=== PATIENT | female | born 1955 | race American Indian/Alaskan Native ===

== ENCOUNTER 2017-02-14 19:43 | Inpatient (IN) | payer MEDICARE ==
[2017-02-14 22:05] LABS: Alanine Aminotransferase 8 units/L (7-56); Albumin 4.3 g/dL (3.9-5); Albumin/Globulin Ratio 1.5 %; Alkaline Phosphatase 89 units/L (35-129); Anion Gap 18 mmol/L; BUN/Creatinine Ratio 16.25; Blood Urea Nitrogen 13 mg/dL (7-17); Carbon Dioxide 26 mmol/L (22-30); Chloride 105.3 mmol/L (98-107); Glucose 95 mg/dL (65-100); Potassium 4.2 mmol/L (3.6-5.0); Sodium 145 mmol/L (137-145); Total Protein 7.2 g/dL (6.3-8.2)
[2017-02-14 22:07] LABS: Basophils % (Auto) 0.5 % (0.0-1.8); Eosinophils % (Auto) 0.1 % (0.0-4.3); Hematocrit 41.5 % (30.3-42.9); Hemoglobin 13.7 gm/dl (10.1-14.3); Mean Corpuscular HGB Conc 33 % (30-34); Mean Corpuscular Hemoglobin 31 pg (28-32); Mean Corpuscular Volume 93 fl (79-97); Platelet Count 207 K/mm3 (140-440); Red Blood Count 4.47 M/mm3 (3.65-5.03); Red Cell Distribution Width 14.2 % (13.2-15.2); White Blood Count 10.5 K/mm3 (4.5-11.0)
[2017-02-14 23:26] LABS: Urine Drugs of Abuse Note Disclamer
--- NOTE | 2017-02-14 23:32 | Emergency Department Report ---
ED Syncope HPI - General Chief Complaint: Syncope Stated Complaint: DEHYDRATION Time Seen by Provider: 02/14/17 22:29 Source: patient - History of Present Illness Initial Comments: 61-year-old female with past medical history of hypertension presenting to the emergency department complaining of syncopal episode. Per patient and daughter who is at bedside and witnessed the event she was seated on her porch felt hot and then proceeded to have brief LOC. Pt then woke up and had another brief episode of LOC. Patient did not hit her head. Prior to syncope, patient did not have symptoms of: headache, change of vision, chest pain, abdominal pain, shortness of breath, difficulty breathing. Currently patient has no symptoms. Timing/Prior Episodes: multiple episodes today Precipitating Factors: Positive: none. Negative: blurred vision, confusion, diaphoresis, injury, lightheadedness Context: sitting Loss of Consciousness: brief (seconds) Current Symptoms: back to normal. denies: blurred vision, chest pain, dizziness , lightheadedness, loss of bladder control, loss of bowel control, shallow/ rapid breathing, weak/absent pulse - Related Data Allergies/Adverse Reactions: Allergies No Known Allergies Allergy (Verified 02/15/17 00:03) Home Medications: Ambulatory Orders Escitalopram [Lexapro] 10 mg PO DAILY #60 tablet 04/18/16 amLODIPine [Norvasc] 10 mg PO DAILY #60 tab 04/18/16 Ergocalciferol [Vitamin D2] 1 cap PO QWEEK 02/14/17 Lisinopril [Zestril TAB] 10 mg PO QDAY 02/14/17 ED Review of Systems ROS: Stated complaint: DEHYDRATION Other details as noted in HPI Comment: All other systems reviewed and negative Constitutional: denies: chills, fever Eyes: denies: eye pain, eye discharge, vision change ENT: denies: ear pain, throat pain Respiratory: denies: cough, shortness of breath, wheezing Cardiovascular: syncope. denies: chest pain, palpitations Endocrine: no symptoms reported Gastrointestinal: denies: abdominal pain, nausea, diarrhea Genitourinary: denies: urgency, dysuria, discharge Musculoskeletal: denies: back pain, joint swelling, arthralgia Skin: denies: rash, lesions Neurological: denies: headache, weakness, paresthesias Psychiatric: denies: anxiety, depression Hematological/Lymphatic: denies: easy bleeding, easy bruising ED Past Medical Hx - Past Medical History Previous Medical History?: Yes Hx Hypertension: Yes Hx Psychiatric Treatment: Yes (anxiety,depression) Additional medical history: pt had hydrocephalus 2012 , 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, polio - Surgical History Past Surgical History?: Yes Additional Surgical History: surgery to brain to remove excess fluid, , umbilical hernia repair,hysterectomy - Social History Smoking Status: Never Smoker Substance Use Type: None - Medications Home Medications: Home Medications Medication Instructions Recorded Confirmed Last Taken Type Escitalopram [Lexapro] 10 mg PO DAILY #60 tablet 04/18/16 02/14/17 Unknown Rx amLODIPine [Norvasc] 10 mg PO DAILY #60 tab 04/18/16 02/14/17 Unknown Rx Ergocalciferol [Vitamin D2] 1 cap PO QWEEK 02/14/17 02/14/17 Unknown History Lisinopril [Zestril TAB] 10 mg PO QDAY 02/14/17 02/14/17 Unknown History ED Physical Exam - General Limitations: Altered Mental Status General appearance: alert, in no apparent distress - Head Head exam: Present: atraumatic, normocephalic - Eye Eye exam: Present: normal appearance - ENT ENT exam: Present: mucous membranes moist - Neck Neck exam: Present: normal inspection - Respiratory Respiratory exam: Present: normal lung sounds bilaterally. Absent: respiratory distress - Cardiovascular Cardiovascular Exam: Present: regular rate, normal rhythm. Absent: systolic murmur, diastolic murmur, rubs, gallop - GI/Abdominal GI/Abdominal exam: Present: soft, normal bowel sounds - Extremities Exam Extremities exam: Present: normal inspection - Back Exam Back exam: Present: normal inspection - Neurological Exam Neurological exam: Present: alert, oriented X3 - Psychiatric Psychiatric exam: Present: normal affect, normal mood - Skin Skin exam: Present: warm, dry, intact, normal color. Absent: rash ED Course Vital Signs 02/14/17 02/14/17 02/14/17 20:15 21:26 21:30 Temperature 99.3 F Pulse Rate 73 74 80 Respiratory 13 16 12 Rate Blood Pressure 157/97 152/110 Blood Pressure 157/97 [Left] O2 Sat by Pulse 97 98 96 Oximetry 02/14/17 02/14/17 02/14/17 21:38 22:01 22:30 Temperature Pulse Rate 76 77 Respiratory 15 14 25 H Rate Blood Pressure 164/102 153/108 Blood Pressure [Left] O2 Sat by Pulse 97 99 97 Oximetry 02/14/17 23:01 Temperature Pulse Rate 75 Respiratory 14 Rate Blood Pressure 160/103 Blood Pressure [Left] O2 Sat by Pulse 97 Oximetry ED Medical Decision Making - Lab Data Result diagrams: 02/14/17 21:21 02/14/17 21:21 - EKG Data -: EKG Interpreted by Me EKG shows normal: sinus rhythm, axis (normal ), intervals (normal ), ST-T waves (Twave flattening in VF-V6 ) - Medical Decision Making History of female presenting to emergency department complaining of syncope episode. Lab work negative for acute finding. No acute findings EKG. I will admit patient to telemetry for further workup. Patient has been accepted Dr. Walker's service. Dr. Walker requesting d-dimer and she will follow-up. Critical Care Time: No Critical care attestation.: If time is entered above; I have spent that time in minutes in the direct care of this critically ill patient, excluding procedure time. ED Disposition Clinical Impression: Syncope Disposition: OP ADMIT IP TO THIS HOSP Is pt being admited?: Yes Does the pt Need Aspirin: No Condition: Stable
[2017-02-14 23:55] LABS: Bacteria,Urine 1+ /HPF (Negative); Bilirubin,Urine NEG (Negative); Blood,Urine NEG (Negative); Ketones,Urine 20 mg/dL (Negative); Leukocyte Esterase,Urine NEG (Negative); Mucus,Urine FEW /HPF; Nitrite,Urine POS (Negative); Urobilinogen,Urine < 2.0 mg/dL (<2.0)
[2017-02-14] MEDS ORDERED: ZOFRAN IV PRN (23:56)
[2017-02-14] MEDS ORDERED: DULCOLAX PR PRN (23:56)
[2017-02-14] MEDS ORDERED: MILK OF MAGNESIA PO PRN (23:56)
[2017-02-14] MEDS ORDERED: TYLENOL PO PRN (23:56)
--- NOTE | 2017-02-14 23:56 | History and Physical Report ---
History of Present Illness Date of examination: 02/14/17 History of present illness: 7-year-old woman history of hypertension, anxiety, depression was brought to the emergency room because she was sitting outside for about 10 minutes when she became less responsive. She was immediately brought inside and had a near syncopal episode 2. Was brought to the emergency room for evaluation. Complains of nausea, dizziness Patient denies chest pain, palpitation, shortness of breath, cough, abdominal pain, hematochezia, dysuria, frequency, focal weakness, dysarthria, fever chills , polydipsia polyuria, hot or cold intolerance, easy bruisability, or rash or bleeding from mucosal membrane, rhinorrhea, epistaxis, earache, tinnitus, blurry vision, eye discharge, anxiety, depression. Other review of systems negative PAST SURGICAL HISTORY: , umbilical hernia, hysterectomy, brain surgery SOCIAL HISTORY: Denies alcohol, tobacco, drugs FAMILY HISTORY: Hypertension Medications and Allergies Allergies Allergy/AdvReac Type Severity Reaction Status Date / Time No Known Allergies Allergy Verified 02/15/17 00:03 Home Medications Medication Instructions Recorded Confirmed Last Taken Type Escitalopram [Lexapro] 10 mg PO DAILY #60 tablet 04/18/16 02/14/17 Unknown Rx amLODIPine [Norvasc] 10 mg PO DAILY #60 tab 04/18/16 02/14/17 Unknown Rx Ergocalciferol [Vitamin D2] 1 cap PO QWEEK 02/14/17 02/14/17 Unknown History Lisinopril [Zestril TAB] 10 mg PO QDAY 02/14/17 02/14/17 Unknown History Exam - Physical Exam Narrative exam: Gen. appearance: Patient lying in bed, no apparent distress HEENT: Normocephalic, atraumatic, pupils equally round and reactive to light, extraocular movement intact, and no sclericterus,. No JVD or thyromegaly or nodule,neck supple, no carotid bruit ,mucous membranes moist, no exudate or erythema Heart: S1, S2, regular rate and rhythm Lungs: Clear to auscultation bilaterally, breathing comfortable Abdomen: Positive bowel sounds, nontender, nondistended, no organomegaly Extremity: No edema, cyanosis, clubbing Skin: No rash, nodules, warm, dry Neuro: Oriented 3, cranial nerves II-12 intact, speech is fluent, motor and sensory intact - Constitutional Vitals: Temp Pulse Resp BP Pulse Ox 99.3 F 75 14 160/103 97 02/14/17 20:15 02/14/17 23:01 02/14/17 23:01 02/14/17 23:01 02/14/17 23:01 Results - Labs CBC & Chem 7: 02/15/17 07:22 02/15/17 07:22 Labs: Abnormal lab results 02/14/17 02/14/17 02/14/17 Range/Units 21:21 21:21 21:27 Lymph % (Auto) 8.5 L (13.4-35.0) % Lymph # 0.9 L (1.2-5.4) K/mm3 Seg Neutrophils % 85.0 H (40.0-70.0) % Seg Neutrophils # 8.9 H (1.8-7.7) K/mm3 D-Dimer (0-234) ng/mlDDU POC Glucose 68 L (70-105) Salicylates < 0.3 L (2.8-20.0) mg/dL 02/14/17 Range/Units 23:05 Lymph % (Auto) (13.4-35.0) % Lymph # (1.2-5.4) K/mm3 Seg Neutrophils % (40.0-70.0) % Seg Neutrophils # (1.8-7.7) K/mm3 D-Dimer 302.52 H (0-234) ng/mlDDU POC Glucose (70-105) Salicylates (2.8-20.0) mg/dL - Imaging and Cardiology EKG: image reviewed Chest x-ray: image reviewed Assessment and Plan Hypertensive urgency Near-syncope Anxiety Depression Admit to medicine Check cardiac enzymes, CT chest, echo, carotid Doppler Start IV hydralazine, continue appropriate outpatient medications, start DVT prophylaxis
[2017-02-15 00:40] LABS: Creatine Kinase MB 1.3 ng/mL (0.0-4.0)
[2017-02-15 00:41] LABS: Creatine Kinase 82 units/L (30-135)
[2017-02-15] MEDS ORDERED: NACL ONE (01:17)
[2017-02-15] MEDS ORDERED: ZESTRIL PO SCH ×2 (02:00→10:00)
--- NOTE | 2017-02-15 02:02 | Admit Criteria Form ---
Admission Criteria Documentation: TELEMETRY CARE Telemetry Admission Guidelines (Place 'X' for any and all applicable criteria): Admission to telemetry [A] may be indicated for ANY ONE of the following(1)(2)(3 )(4)(5): [ ]I. Cardiac disease, including ANY ONE of the following (9)(10)(11)(12)(13 ): [ ]a) Postacute PA [ ]b) Low-risk patients with ST-segment elevation PA who have undergone successful percutaneous coronary intervention [ ]c) Unstable angina [ ]d) Suspected PA (until it is ruled out) [ ]e) Post cardiac surgery (first 48 to 72 hours unless complications occur) [ ]f) Acute arrhythmias (including significant tachycardia or bradycardia) [B] [ ]g) Firing of an implantable cardioverter defibrillator [C] [ ]h) Suspected pacemaker or implantable cardioverter defibrillator malfunction (10) [ ]i) New administration or adjustment of an antiarrhythmic drug [D ] [ ]j) Child admitted for acute congestive heart failure [ ]j) Long QT syndrome [ ]k) Advanced heart block (eg, second-degree Mobitz type II, third- degree heart block) [ ]l) Acute myocarditis or pericarditis [ ]m) Short-term (ambulatory or inpatient) monitoring after a cardiac procedure as indicated by ANY ONE of the following [E]: [ ]i) Electrophysiologic studies [ ]ii) Percutaneous coronary intervention with stent placement [ ]iii) Pacemaker placement with cardiac conduction defect [ ]iv) Implantable cardiac defibrillator placement [ ]II. Drug overdose or poisoning with substance that causes arrhythmias or QT prolongation (eg, phenothiazines, sympathomimetic agents, cyclic antidepressants, digitalis, antiarrhythmic drugs)(15) [ ]III. Short-term (ambulatory or inpatient) monitoring after therapeutic or diagnostic procedure requiring conscious sedation or anesthesia (eg, endoscopy, elective cardioversion) [ ]IV. Acute cerebrovascular even[F](18) [ ]V. Massive blood transfusion (eg, at least 10 units of packed red blood cells in 24 hours) [ ]. Variceal bleeding after endoscopy, sclerotherapy, or IV vasopressin [ ]VII. Uncorrected electrolyte abnormalities associated with an increased risk of dangerous arrhythmia [G]; examples include [ ]a) Hyperkalemia with attributable ECG changes [ ]b) Potassium greater than 6.5 mmol/L (mEq/L) in a patient without history of chronic renal disease [ ]c) Prolonged QT attributed to hypokalemia, hypomagnesemia, or hypocalcemia [ X]VIII.Unexplained syncope or other neurologic event suspected of being due to arrhythmia due to a finding that increases risk; examples include(19)(20)(21): [ ]a) High-risk ECG findings (eg, bifascicular block, bradycardia, abnormal QT interval, ventricular pre- excitation) [ ]b) History of previous syncope due to arrhythmia [ ]c) Abnormal ventricular function (eg, reduced ejection fraction ) [ ]d) Exertional or supine syncope [ X]e) Concerning syncope characteristics (eg, sudden loss of consciousness without prodrome) [ ]f) Family history of sudden [ ]g) Use of arrhythmogenic medication [ ]h) Suspected cardiac ischemia [ ]i) Known channelopathy (eg, long QT syndrome, Brugada syndrome, or catecholaminergic paroxysmal ventricular tachycardia) [ ]j) Known structural heart disease (eg, hypertrophic cardiomyopathy , severe valvular disease) [ ]k) Palpitations preceding syncope The original [employer] content created by [employer] has been revised. The portions of the content which have been revised are identified through the use of italic text or in bold, and [employer] by [facility] [email or web address] has neither reviewed nor approved the modified material. All other unmodified content is copyright [employer]. Please see references footnoted in the original [employer] edition 2016 Admission Criteria Met: Yes
--- NOTE | 2017-02-15 02:23 | Cat Scan Report ---
FINAL REPORT PROCEDURE: CT ANGIO CHEST TECHNIQUE: Computerized axial tomographic angiography of the chest and pulmonary arteries was performed after the IV injection of iodinated nonionic contrast. The image data was postprocessed using maximum intensity projection (MIP) and 2-dimensional multiplanar reformatted (MPR) techniques. The examination is specifically tailored to the evaluation of the pulmonary arteries per clinical request. HISTORY: Short of breath 786.09, chest pain 786.50, weakness syncopal episode COMPARISON: No prior studies are available for comparison. FINDINGS: Heart and pericardium: Normal. Thoracic aorta: There is no aneurysm or dissection.. Pulmonary vasculature: Normal. No pulmonary emboli. Lymph nodes: No enlarged thoracic lymph nodes. Lungs: There is suboptimal inspiration. There is elevation of the left hemidiaphragm. There are mild fibrotic changes. There are no acute infiltrates.. Pleural space: There is no pleural effusion or pneumothorax.. Musculoskeletal structures: There has been partial resection of right rib 6. There are no acute bony abnormalities.. Upper abdominal structures: No significant abnormality. IMPRESSION: There is no pulmonary embolism. There is no aneurysm or dissection.. There is suboptimal inspiration. There is elevation of the left hemidiaphragm. There are mild fibrotic changes. There are no acute infiltrates.. There is no pleural effusion or pneumothorax.. .
[2017-02-15 08:03] LABS: Basophils % (Auto) 0.7 % (0.0-1.8); Eosinophils % (Auto) 0.9 % (0.0-4.3); Hematocrit 39.3 % (30.3-42.9); Hemoglobin 13.1 gm/dl (10.1-14.3); Mean Corpuscular HGB Conc 33 % (30-34); Mean Corpuscular Hemoglobin 30 pg (28-32); Mean Corpuscular Volume 91 fl (79-97); Platelet Count 213 K/mm3 (140-440); Red Blood Count 4.34 M/mm3 (3.65-5.03); Red Cell Distribution Width 14.1 % (13.2-15.2); White Blood Count 6.9 K/mm3 (4.5-11.0)
[2017-02-15 08:17] LABS: Anion Gap 17 mmol/L; BUN/Creatinine Ratio 17.14; Blood Urea Nitrogen 12 mg/dL (7-17); Calcium 9.5 mg/dL (8.4-10.2); Carbon Dioxide 25 mmol/L (22-30); Chloride 105.3 mmol/L (98-107); Glucose 99 mg/dL (65-100); Potassium 4.2 mmol/L (3.6-5.0); Sodium 143 mmol/L (137-145)
[2017-02-15 08:19] LABS: Creatine Kinase MB 1.1 ng/mL (0.0-4.0)
[2017-02-15 08:23] LABS: Creatine Kinase 81 units/L (30-135)
[2017-02-15] MEDS ORDERED: LOVENOX SUB-Q SCH (10:00)
[2017-02-15] MEDS ORDERED: NORVASC PO SCH (10:00)
--- NOTE | 2017-02-15 11:05 | Cat Scan Report ---
CT scan of head without contrast: Compared to 04/18/16. History: Near syncope . Findings: Markedly dilated lateral ventricles. The left is more dilated compared to right. No midline shift. Dilated third and fourth ventricles without significant interval change. No extra-axial fluid collection. No significant interval change. No acute ischemia hemorrhage or mass. Right frontal shannon hole. Impression: No significant interval change compared to previous study. 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
[2017-02-15] MEDS: LEXAPRO PO SCH (12:49)
[2017-02-15] MEDS: NORVASC PO SCH (12:49)
[2017-02-15] MEDS: LOVENOX SUB-Q SCH (12:49)
[2017-02-15] MEDS: ZESTRIL PO SCH ×2 (12:50→21:34)
--- NOTE | 2017-02-15 19:52 | Progress Note ---
Assessment and Plan Assessment and plan: -- Malignant Hypertension; moderate control,continue current antihypertensives and PRN medications -- syncope: w/u in progress,fall precautions PT and OT as needed -- h/o Anxiety and depression cont current medications --DVT prophylaxis with lovenox History Interval history: Patient feels better no complaints syncope w/u in progress Hospitalist Physical - Constitutional Vitals: Temp Pulse Resp BP Pulse Ox 98.6 F 64 20 148/89 95 02/15/17 16:00 02/15/17 16:00 02/15/17 16:00 02/15/17 16:00 02/15/17 16:00 General appearance: Present: no acute distress, well-nourished - EENT Eyes: Present: PERRL, EOM intact - Neck Neck: Present: supple, normal ROM - Respiratory Respiratory effort: normal Respiratory: negative: rales, rhonchi, wheezing - Cardiovascular Rhythm: regular Heart Sounds: Present: S1 & S2 - Extremities Extremities: no ischemia, pulses intact, pulses symmetrical Peripheral Pulses: within normal limits - Abdominal General gastrointestinal: soft, non-tender, non-distended, normal bowel sounds - Integumentary Integumentary: Present: clear, warm - Psychiatric Psychiatric: appropriate mood/affect, cooperative - Neurologic Neurologic: CNII-XII intact, moves all extremities Results - Labs CBC & Chem 7: 02/15/17 07:22 02/15/17 07:22 Labs: Laboratory Last Values WBC 6.9 K/mm3 (4.5-11.0) 02/15/17 07:22 RBC 4.34 M/mm3 (3.65-5.03) 02/15/17 07:22 Hgb 13.1 gm/dl (10.1-14.3) 02/15/17 07:22 Hct 39.3 % (30.3-42.9) 02/15/17 07:22 MCV 91 fl (79-97) 02/15/17 07:22 MCH 30 pg (28-32) 02/15/17 07:22 MCHC 33 % (30-34) 02/15/17 07:22 RDW 14.1 % (13.2-15.2) 02/15/17 07:22 Plt Count 213 K/mm3 (140-440) 02/15/17 07:22 Lymph % (Auto) 17.8 % (13.4-35.0) 02/15/17 07:22 [place] % (Auto) 9.2 % (0.0-7.3) H 02/15/17 07:22 Eos % (Auto) 0.9 % (0.0-4.3) 02/15/17 07:22 Baso % (Auto) 0.7 % (0.0-1.8) 02/15/17 07:22 Lymph # 1.2 K/mm3 (1.2-5.4) 02/15/17 07:22 [place] # 0.6 K/mm3 (0.0-0.8) 02/15/17 07:22 Eos # 0.1 K/mm3 (0.0-0.4) 02/15/17 07:22 Baso # 0.0 K/mm3 (0.0-0.1) 02/15/17 07:22 Seg Neutrophils % 71.4 % (40.0-70.0) H 02/15/17 07:22 Seg Neutrophils # 4.9 K/mm3 (1.8-7.7) 02/15/17 07:22 D-Dimer 302.52 ng/mlDDU (0-234) H 02/14/17 23:05 Sodium 143 mmol/L (137-145) 02/15/17 07:22 Potassium 4.2 mmol/L (3.6-5.0) 02/15/17 07:22 Chloride 105.3 mmol/L (98-107) 02/15/17 07:22 Carbon Dioxide 25 mmol/L (22-30) 02/15/17 07:22 Anion Gap 17 mmol/L 02/15/17 07:22 BUN 12 mg/dL (7-17) 02/15/17 07:22 Creatinine 0.7 mg/dL (0.7-1.2) 02/15/17 07:22 Estimated GFR > 60 ml/min 02/15/17 07:22 BUN/Creatinine Ratio 17.14 % 02/15/17 07:22 Glucose 99 mg/dL (65-100) 02/15/17 07:22 POC Glucose 78 (70-105) 02/14/17 21:31 Lactic Acid 1.60 mmol/L (0.7-2.0) 02/14/17 23:05 Calcium 9.5 mg/dL (8.4-10.2) 02/15/17 07:22 Magnesium 2.10 mg/dL (1.7-2.3) 02/14/17 21:21 Total Bilirubin 0.50 mg/dL (0.1-1.2) 02/14/17 21:21 AST 10 units/L (5-40) 02/14/17 21:21 ALT 8 units/L (7-56) 02/14/17 21:21 Alkaline Phosphatase 89 units/L (35-129) 02/14/17 21:21 Total Creatine Kinase 81 units/L (30-135) 02/15/17 07:22 CK-MB (CK-2) 1.1 ng/mL (0.0-4.0) 02/15/17 07:22 CK-MB (CK-2) Rel Index 1.3 (0-4) 02/15/17 07:22 Troponin T < 0.010 ng/mL (0.00-0.029) 02/15/17 07:22 Total Protein 7.2 g/dL (6.3-8.2) 02/14/17 21:21 Albumin 4.3 g/dL (3.9-5) 02/14/17 21:21 Albumin/Globulin Ratio 1.5 % 02/14/17 21:21 TSH 1.720 mlU/mL (0.270-4.200) 02/14/17 21:21 Urine Color Yellow (Yellow) 02/14/17 22:30 Urine Turbidity Slightly-cloudy (Clear) 02/14/17 22:30 Urine pH 7.0 (5.0-7.0) 02/14/17 22:30 Ur Specific [place] 1.017 (1.003-1.030) 02/14/17 22:30 Urine Protein 30 mg/dl mg/dL (Negative) 02/14/17 22:30 Urine Glucose (UA) Neg mg/dL (Negative) 02/14/17 22:30 Urine Ketones 20 mg/dL (Negative) 02/14/17 22:30 Urine Blood Neg (Negative) 02/14/17 22:30 Urine Nitrite Pos (Negative) 02/14/17 22:30 Urine Bilirubin Neg (Negative) 02/14/17 22:30 Urine Urobilinogen < 2.0 mg/dL (<2.0) 02/14/17 22:30 Ur Leukocyte Esterase Neg (Negative) 02/14/17 22:30 Urine WBC (Auto) 4.0 /HPF (0.0-6.0) 02/14/17 22:30 Urine RBC (Auto) 4.0 /HPF (0.0-6.0) 02/14/17 22:30 U Epithel Cells (Auto) < 1.0 /HPF (0-13.0) 02/14/17 22:30 Urine Bacteria (Auto) 1+ /HPF (Negative) 02/14/17 22:30 Urine Mucus Few /HPF 02/14/17 22:30 Salicylates < 0.3 mg/dL (2.8-20.0) L 02/14/17 21:21 Urine Opiates Screen Presumptive negative 02/14/17 22:30 Urine Methadone Screen Presumptive negative 02/14/17 22:30 Acetaminophen < 15.0 ug/mL (10.0-30.0) 02/14/17 21:21 Ur Barbiturates Screen Presumptive negative 02/14/17 22:30 Ur Phencyclidine Scrn Presumptive negative 02/14/17 22:30 Ur Amphetamines Screen Presumptive negative 02/14/17 22:30 U Benzodiazepines Scrn Presumptive negative 02/14/17 22:30 Urine Cocaine Screen Presumptive negative 02/14/17 22:30 U Marijuana (THC) Screen Presumptive negative 02/14/17 22:30 Drugs of Abuse Note Disclamer 02/14/17 22:30 Plasma/Serum Alcohol < 0.01 gm% (0-0.07) 02/14/17 21:21
[2017-02-16] MEDS: LOVENOX SUB-Q SCH (10:46)
[2017-02-16] MEDS: ZESTRIL PO SCH (10:47)
[2017-02-16] MEDS: NORVASC PO SCH (10:47)
[2017-02-16] MEDS: LEXAPRO PO SCH (10:52)
--- NOTE | 2017-02-16 13:23 | Discharge Summary ---
Providers - Providers Date of Admission: 02/14/17 23:56 Date of discharge: 02/16/17 Attending physician: SASKIA JUAREZ Primary care physician: [employer] Hospitalization Reason for admission: syncopal episode Condition: Stable Pertinent studies: CT head without contrast; no significant interval change compared to previous study long-standing hydrocephalus CTA chest; no PE elevation of the right diaphragm mild fibrotic changes no acute infiltrates Carotid Doppler; no hemodynamically significant stenosis Echocardiogram; normal left ventricular function ejection fraction 55-60% Hospital course: Patient was admitted with the history of altered level of consciousness and syncopal episode Initial evaluation admitted to the hospital symptomatically managed, placed on fall precautions, syncope workup was negative as mentioned above Patient was also noted to have malignant hypertension, blood pressures medications were optimized blood pressures brought to reasonably controlled Patient's symptoms significantly improved, no new episodes of syncope Today she is comfortable in bed, ambulatory and tolerating oral nutrition [id number] evaluation and physical examination done by me prior to discharge is unremarkable Hemodynamically and clinically stable for discharge today Final diagnosis; Malignant hypertension' syncope History of anxiety disorder History of depression Disposition: DC-01 TO HOME OR SELFCARE Time spent for discharge: 31 min Core Measure Documentation - Palliative Care Palliative Care/ Comfort Measures: Not Applicable - Core Measures Any of the following diagnoses?: none Exam - Constitutional Vitals: Temp Pulse Resp BP Pulse Ox 98.1 F 54 L 18 129/84 98 02/16/17 05:50 02/16/17 09:07 02/16/17 05:50 02/16/17 05:50 02/16/17 05:50 General appearance: Present: no acute distress, well-nourished - EENT Eyes: Present: PERRL, EOM intact - Neck Neck: Present: supple, normal ROM - Respiratory Respiratory effort: normal Respiratory: bilateral: diminished, negative: rales, rhonchi, wheezing - Cardiovascular Rhythm: regular Heart Sounds: Present: S1 & S2 - Extremities Extremities: no ischemia, pulses intact, pulses symmetrical - Abdominal General gastrointestinal: Present: soft, non-tender, non-distended, normal bowel sounds - Integumentary Integumentary: Present: clear, warm - Musculoskeletal Musculoskeletal: strength equal bilaterally, generalized weakness - Psychiatric Psychiatric: appropriate mood/affect - Neurologic Neurologic: CNII-XII intact, moves all extremities Plan Activity: no restrictions, fall precautions Diet: low salt Follow up with: [facility] [Outside] - 03/16/17 1:45 pm PRIMARY CARE, [Primary Care Provider] - 3-5 Days Prescriptions: Lisinopril [Zestril TAB] 10 mg PO BID #60 tablet traMADol [Ultram 50 MG tab] 50 mg PO Q8H PRN #15 tablet PRN Reason: Pain
[2017-02-16 14:12] VITALS: BP 138/53
--- NOTE | 2017-02-20 07:48 | Vascular Lab Report ---
CAROTID DUPLEX STUDY: RIGHT PSVEDV CCA PROX:[id number] CCA DIST: 6625 ICA PROX: 5928 ICA MID: 5525 ICA DIST: 3612 ECA: 7411 VERT: 32 12 LEFT PSVEDV CCA PROX:7817 CCA DIST:5818 ICA PROX: 6017 ICA MID: 5727 ICA DIST: 8831 ECA: 4410 VERT: 58 19 REASON FOR EXAM: Carotid artery stenosis/syncope. COMMENTS ON THE RIGHT: Doppler frequency analysis is consistent with 16 to 49 percent diameter reduction of the internal carotid artery. Minimal amount of plaque is seen. The common carotid artery is patent. The external carotid artery is patent. The vertebral artery has antegrade flow. COMMENTS ON THE LEFT: Doppler frequency analysis is consistent with 16 to 49 percent diameter reduction of the internal carotid artery. Minimal amount of plaque is seen. The common carotid artery is patent. The external carotid artery is patent. The vertebral artery has antegrade flow. IMPRESSION: Less than 50% diameter reduction in the internal carotid arteries bilaterally. Consider repeat carotid artery duplex in 12 months.
[2017-02-22] MEDS ORDERED: VITAMIN D2 PO SCH (10:00)
== END 2017-02-16 15:01 | disposition home health service (06) | DRG 305 ==
LOC: ED 19:43 → 4A 23:56
PROVIDERS: ADMIT Internal Medicine; ATTEND Internal Medicine
DX: I16.0 Hypertensive urgency (principal); R55 Syncope and collapse; F41.9 Anxiety disorder, unspecified; F32.9 Major depressive disorder, single episode, unspecified; Z98.891 History of uterine scar from previous surgery; Z90.710 Acquired absence of both cervix and uterus; Z82.49 Family history of ischemic heart disease and other diseases of the circulatory system
CPT/HCPCS: 36415; 70450; 71275; 80048; 80053; 80307; 80320; 81001; 82140; 82550; 82553; 82962; 83735; 84443; 84484; 85025; 85379; 93005; 93010; 93306; 93880; 99285; G0480; J1650; Q9967